=== PATIENT | male | born 2000 | race Caucasian/White ===

== ENCOUNTER 2021-08-19 16:20 | Emergency (ER) | payer BC ==
[~2021-08-19] VITALS: Ht 177.8 cm; Wt 70.6 kg
[2021-08-19] MEDS ORDERED: NAPR220C14 PO (16:28)
[2021-08-19] MEDS ORDERED: HYDR-3713 PO (19:32)
[2021-08-19] MEDS ORDERED: NORCO, ANEXSIA 5/325MG TABLET (HYDROcodone/ACETAMINOPHEN) PO ONE (19:40)
[2021-08-19 19:43] VITALS: BP 132/74
== END 2021-08-19 20:12 | disposition home or self-care (01) ==
LOC: M ED 16:20
DX: S22.31XA Fracture of one rib, right side, initial encounter for closed fracture (principal); W01.0XXA Fall on same level from slipping, tripping and stumbling without subsequent striking against object, initial encounter; Y92.9 Unspecified place or not applicable; Y93.9 Activity, unspecified; Y99.0 Civilian activity done for income or pay; Z88.0 Allergy status to penicillin